=== PATIENT | female | born 1950 | race Caucasian/White ===

== ENCOUNTER → 2017-11-17 | Outpatient (CLI) | payer OTHER | END | disposition home or self-care (01) | LOC: LAB SHORT 13:42 → PLD 13:42 | DX: L82.1 Other seborrheic keratosis (principal); L57.8 Other skin changes due to chronic exposure to nonionizing radiation | CPT/HCPCS: 88305 ==

== ENCOUNTER → 2019-04-30 | Outpatient (CLI) | payer OTHER ==
[~2019-04-30] MED LIST: ASPI325EC PO; DICLOFONO2.5 GM TOP; Percocet 5-3251 EACH PO
[2019-05-01 12:16] LABS: Stool Occult Bld Immuno 1 Positive (NEGATIVE)
== END ==
LOC: LAB SHORT 12:37 → LAB 12:37
PROVIDERS: Family Medicine
DX: Z12.11 Encounter for screening for malignant neoplasm of colon (principal)
CPT/HCPCS: G0328

== ENCOUNTER 2019-06-16 07:52 | Day surgery (SDC) | payer OTHER ==
[~2019-06-16] VITALS: Ht 162.6 cm; Wt 57.1 kg
[~2019-06-16 07:52] MED LIST changes: +FLUC200 PO
--- NOTE | 2019-06-16 08:27 | NUR ---
06/16/19 0827 Redd Teran 1ST ATTEMPT IN RIGHT HAND VEIN BLEW AND 2 ND ATTEMPT IN RIGHT AC JOINT VEIN BLEW-CMT
--- NOTE | 2019-06-16 09:55 | NUR ---
06/16/19 0955 Danni Leavitt UNABLE TO COMPLETE COLONOSCOPY DUE TO NOT BEING ABLE TO INTRODUCE SCOPE PAST SIGMOID.
== END 2019-06-16 10:25 | disposition home or self-care (01) ==
LOC: ORSCSDS 07:52
PROVIDERS: Internal Medicine Gastroenterology
PROC: 0DJD8ZZ Inspection of Lower Intestinal Tract, Via Natural or Artificial Opening Endoscopic (ICD-10-PCS; principal; 2019-06-16 09:00)
DX: R19.5 Other fecal abnormalities (principal); Z80.0 Family history of malignant neoplasm of digestive organs; K64.8 Other hemorrhoids
CPT/HCPCS: J2704; J7120

== ENCOUNTER → 2020-11-06 | Outpatient (CLI) | payer OTHER ==
[2020-11-08 18:10] LABS: HPV 16 Positive (Negative); HPV 18 Negative (Negative); HPV OTHER HR TYPES Positive (Negative)
== END | disposition home or self-care (01) ==
LOC: LAB SHORT 17:06
PROVIDERS: Obstetrics & Gynecology
DX: Z01.419 Encounter for gynecological examination (general) (routine) without abnormal findings (principal)
CPT/HCPCS: 87624; 87625; G0123

== ENCOUNTER 2020-11-14 06:43 | Day surgery (SDC) | payer OTHER ==
[~2020-11-14] VITALS: Ht 160 cm; Wt 57.7 kg
--- NOTE | 2020-11-14 10:27 | NUR ---
11/14/20 Home7 Jacqueline Magana PATIENT SHARED THAT SHE HAS TWO BANDAGES ON EACH WRIST REGIONS COVERING HEALING POSION [place]. [place], EN
--- NOTE | 2020-11-14 13:41 | NUR ---
DECREASED BP AND HR PT'S BP AND HR ARE LOW AT THIS TIME. DR. BENTLEY NOTIFIED THAT PT'S HR IS RUNNING IN THE MID TO HIGH 40'S AND BUT HAS BEEN UP TO 55 BPM FOR SHORT PERIODS. BP IS 80'S/50'S. PT IS ALERT, ORIENTED AND ASYMPTOMATIC OF LOW BP. DR. BENTLEY REPORTED THAT PT'S HR WAS DROPPING INTO THE 40'S DURING SURGERY AND DECLINED NEED TO PLACE PT ON TELE OR CONSULT HOSPITALIST AT THIS TIME. PER DR. BENTLEY AND OR STAFF DR. DIEGO UNABLE TO ANSWER CALL AT THE CURRENT TIME. WILL CONTINUE TO MONITOR.
--- NOTE | 2020-11-14 16:46 | NUR ---
SHIFT SUMMARY PT IS POD#0 FROM R TKA WITH DR. DIEGO. PT INITIALLY HAD LOW BP AND HR POST-OP, BOTH HAVE IMPROVED AFTER 500 ML BOLUS. PT WAS ABLE TO AMBULATE WITH PHYSICAL THERAPY AND DO THE STAIRS. PAIN MANAGED WITH PO PAIN MEDICATION, PAIN AT 4/10 AFTER THERAPY. PT IS TOLERATING PO. SHE IS IN GOOD SPIRITS. PT'S SISTER AND DAUGHTER UPDATED REGARDING HER CONDITION PER HER REQUEST. WILL MONITOR UNIL REPORT TO BORIS IZAGUIRRE.
[2020-11-15 05:13] LABS: BASOPHILS ABSOLUTE AUTO 0.01 K/mm3 (0.00-0.23); BASOPHILS PERCENT AUTO 0 % (0-2); EOSINOPHILS ABSOLUTE AUTO 0.08 K/mm3 (0.00-0.68); EOSINOPHILS PERCENT AUTO 1 % (0-6); Hematocrit 31.3 % (33.0-51.0); Hemoglobin 10.6 g/dL (11.5-16.0); IMMATURE GRAN ABSOLUTE AUTO 0.01 K/mm3 (0.00-0.10); IMMATURE GRAN PERCENT AUTO 0 % (0-1); LYMPHOCYTES ABSOLUTE AUTO 1.62 K/mm3 (0.84-5.20); LYMPHOCYTES PERCENT AUTO 20 % (21-46); MONOCYTES ABSOLUTE AUTO 0.62 K/mm3 (0.16-1.47); MONOCYTES PERCENT AUTO 8 % (4-13); Mean Corpuscular HGB 33.1 pg (26.0-34.0); Mean Corpuscular HGB Conc 33.9 g/dL (31.5-36.5); Mean Corpuscular Volume 98 fL (80-100); Mean Platelet Volume 10.6 fL (9.1-12.4); NEUTROPHILS ABSOLUTE AUTO 5.79 K/mm3 (1.96-9.15); NEUTROPHILS PERCENT AUTO 71 % (41-73); Platelet Count 162 K/mm3 (150-400); RDW Coefficient Variation 11.9 % (11.7-14.2); RDW Standard Deviation 42.6 fL (35.1-46.3); White Blood Cell Count 8.13 K/mm3 (4.00-11.30)
--- NOTE | 2020-11-15 05:19 | NUR ---
SHIFT SUMMARY POD1 R TKA, A/O X4, VSS, TOLERATING PO, AMBULATING IN ROOM AND HALLWAYS, DENIES PAIN OR REPORTS MINIMAL PAIN WHICH HAS BEEN WELL CONTROLLED PER EMAR, VOIDING, BP/HR STABLE THROUGHOUT SHIFT AFTER BOLUS DURING PRIOR DAY SHIFT, NO ACUTE EVENTS THIS SHIFT. CALL LIGHT IN REACH, WILL CTM AND REPORT TO DAY RN.
[2020-11-15 05:27] LABS: Bun/Creatinine Ratio 16.4 (12.0-20.0); Calcium, Blood 7.9 mg/dL (8.5-10.1); Creatinine, Blood 0.97 mg/dL (0.40-1.00); Potassium, Blood 3.7 mmol/L (3.5-5.5)
[2020-11-15] MEDS ORDERED: Percocet 5-3251 EACH PO (08:38)
[2020-11-15] MEDS ORDERED: ASPIR 8181 M1 PO (08:38)
--- NOTE | 2020-11-15 10:14 | NUR ---
DISCHARGE SUMMARY PT A&OX4, VSS, VOIDING, TOLERATING, PAIN MANAGED, LEFT FLOOR VIA WC WITH FLOOD CONTROL ENGINEER, TO GO HOME WITH FAMILY, WITH ALL PERSONAL POSSESSIONS, DC PACKET AND 1 NARC AND 1 ASA SCRIPT. DC INSTRUCTIONS PROVIDED. PT REP UNDERSTANDING THOSE INSTRUCTIONS INCLUDING FU WITH , EDILMA BID/START TONIGHT, PAIN MED/MANAGEMENT, SHORT FREQUENT AMB/REST PERIODS, OUTPT THERAPY, OK SHOWER. IV DC'D.
== END 2020-11-15 09:45 | disposition home or self-care (01) ==
LOC: ORSCMMR 06:43 → ORD 08:15 → ORSCMMR 08:15 → SURS 12:40 → ORSCMMR 11-15 09:45
PROVIDERS: Orthopaedic Surgery
PROC: 8E0YXBZ Computer Assisted Procedure of Lower Extremity (ICD-10-PCS; principal; 2020-11-14 08:15)
PROC: 0SRC0JA Replacement of Right Knee Joint with Synthetic Substitute, Uncemented, Open Approach (ICD-10-PCS; principal; 2020-11-14 08:15)
DX: M17.11 Unilateral primary osteoarthritis, right knee (principal)
CPT/HCPCS: 36415; 73560-RT; 80048; 85025; 97116; 97161; 97530; A9270; C1776; J0171; J0690; J0735; J1885; J2370; J2704; J2795; J3010; J7120

== ENCOUNTER → 2021-11-22 | Outpatient (CLI) | payer OTHER ==
[~2021-11-22] MED LIST changes: +ASPIR 8181 M1 PO
[2021-11-28 10:10] LABS: HPV 16 Negative (Negative); HPV 18 Positive (Negative); HPV OTHER HR TYPES Positive (Negative)
== END | disposition home or self-care (01) ==
LOC: LAB SHORT 13:40 → LAB 13:40
PROVIDERS: Family Medicine
DX: Z09 Encounter for follow-up examination after completed treatment for conditions other than malignant neoplasm (principal); Z87.42 Personal history of other diseases of the female genital tract
CPT/HCPCS: 87624; 87625; G0123

== ENCOUNTER → 2021-12-20 | Outpatient (CLI) | payer OTHER | END | disposition home or self-care (01) | LOC: LAB SHORT 11:04 → LAB 11:04 | DX: R87.811 Vaginal high risk human papillomavirus (HPV) DNA test positive (principal) | CPT/HCPCS: 88305 ==

== ENCOUNTER → 2022-11-27 | Outpatient (CLI) | payer OTHER ==
[2022-11-28 15:09] LABS: HPV 16 Negative (Negative); HPV 18 Negative (Negative); HPV OTHER HR TYPES Negative (Negative)
== END ==
LOC: LAB 15:36 → LAB SHORT 15:36
PROVIDERS: Obstetrics & Gynecology
DX: R87.628 Other abnormal cytological findings on specimens from vagina (principal)
CPT/HCPCS: 87624; 88175

== ENCOUNTER → 2023-12-01 | Outpatient (CLI) | payer OTHER | END | disposition home or self-care (01) | LOC: LAB 15:33 → LAB SHORT 15:33 | DX: H60.393 Other infective otitis externa, bilateral (principal) | CPT/HCPCS: 87070; 87077; 87147; 87186; 87205 ==

== ENCOUNTER → 2024-02-04 | Outpatient (CLI) | payer OTHER ==
[2024-02-17 07:25] LABS: HPV HIGH RISK BY TMA Not Detected; HPV SOURCE Cervical/Vag
== END ==
LOC: LAB SHORT 16:50 → LAB 16:50
PROVIDERS: Obstetrics & Gynecology
DX: Z01.419 Encounter for gynecological examination (general) (routine) without abnormal findings (principal)
CPT/HCPCS: 87624; G0123

== ENCOUNTER → 2025-02-04 | Outpatient (CLI) | payer OTHER | LOC: LAB 15:10 → LAB SHORT 15:10 | PROVIDERS: Obstetrics & Gynecology | DX: Z01.419 Encounter for gynecological examination (general) (routine) without abnormal findings (principal) | CPT/HCPCS: 87624; G0145 ==